=== PATIENT | female | born 2000 | race Caucasian/White ===

== ENCOUNTER 2022-05-04 08:19 | Emergency (ER) | payer OTHER ==
[~2022-05-04] VITALS: Ht 157.5 cm; Wt 48.5 kg
== END 2022-05-04 15:45 | disposition home or self-care (01) ==
LOC: ER 08:19
DX: O26.892 Other specified pregnancy related conditions, second trimester (principal); O21.8 Other vomiting complicating pregnancy; K52.9 Noninfective gastroenteritis and colitis, unspecified; Z3A.17 17 weeks gestation of pregnancy; O26.849 Uterine size-date discrepancy, unspecified trimester; O21.0 Mild hyperemesis gravidarum; O26.859 Spotting complicating pregnancy, unspecified trimester; O26.899 Other specified pregnancy related conditions, unspecified trimester

== ENCOUNTER → 2022-05-07 | Emergency (ER) | payer OTHER ==
[~2022-05-07] VITALS: Ht 157.5 cm; Wt 48.5 kg
== END | disposition home or self-care (01) ==
LOC: ER 10:54
DX: O98.512 Other viral diseases complicating pregnancy, second trimester (principal); U07.1 COVID-19; Z3A.17 17 weeks gestation of pregnancy; Z91.013 Allergy to seafood

== ENCOUNTER 2022-09-20 23:11 | Inpatient (IN) | payer OTHER ==
[~2022-09-20] VITALS: Ht 157.5 cm; Wt 59.0 kg
[2022-09-20] MEDS ORDERED: PEPCID AC20 MG PO (23:25)
[2022-09-20] MEDS ORDERED: PRENATAL + DHA1 EAC1 PO (23:25)
== END 2022-09-22 16:10 | disposition home or self-care (01) | DRG 833 ==
LOC: OBS/DEL 23:11 → LDR 09-21 16:46
PROVIDERS: ADMIT Obstetrics & Gynecology Obstetrics; ATTEND Obstetrics & Gynecology Obstetrics
PROC: 4A1HXCZ Monitoring of Products of Conception, Cardiac Rate, External Approach (ICD-10-PCS; principal; 2022-09-21)
DX: O23.43 Unspecified infection of urinary tract in pregnancy, third trimester (principal); Z3A.36 36 weeks gestation of pregnancy; Z20.822 Contact with and (suspected) exposure to COVID-19

== ENCOUNTER 2022-09-30 02:17 | Inpatient (IN) | payer OTHER ==
[~2022-09-30] VITALS: Ht 157.5 cm; Wt 59.0 kg
[~2022-09-30 02:17] MED LIST: PEPCID AC20 MG PO; PRENATAL + DHA1 EAC1 PO
== END 2022-10-02 14:10 | disposition home or self-care (01) | DRG 807 ==
LOC: LDR 02:17 → OB/GYN 02:17
PROVIDERS: ADMIT Obstetrics & Gynecology Obstetrics; ATTEND Obstetrics & Gynecology Obstetrics
PROC: 10E0XZZ Delivery of Products of Conception, External Approach (ICD-10-PCS; principal; 2022-09-30)
PROC: 4A1HXCZ Monitoring of Products of Conception, Cardiac Rate, External Approach (ICD-10-PCS; 2022-09-30)
DX: O80 Encounter for full-term uncomplicated delivery (principal); Z37.0 Single live birth; Z3A.38 38 weeks gestation of pregnancy; Z20.822 Contact with and (suspected) exposure to COVID-19